=== PATIENT | female | born 1960 | race Caucasian/White ===

== ENCOUNTER 2017-04-23 07:13 | Emergency (ER) | payer OTHER ==
[~2017-04-23] VITALS: Ht 157.5 cm; Wt 64.4 kg
[2017-04-23] MEDS ORDERED: ACETAMINOPHEN 500 MG TABLET ONE (07:51)
[2017-04-23] MEDS ORDERED: ACETAMINOPHEN 500 MG TABLET PO ONE (08:00)
[2017-04-23 09:09] VITALS: BP 121/61
== END 2017-04-23 09:11 | disposition home or self-care (01) ==
LOC: ED 09:00
DX: S16.1XXA Strain of muscle, fascia and tendon at neck level, initial encounter (principal); X58.XXXA Exposure to other specified factors, initial encounter; Y93.89 Activity, other specified; Y92.89 Other specified places as the place of occurrence of the external cause; Y99.9 Unspecified external cause status; Z88.8 Allergy status to other drugs, medicaments and biological substances
CPT/HCPCS: 72125; 99284